=== PATIENT | female | born 1950 | race Caucasian/White ===

== ENCOUNTER → 2016-11-29 | Day surgery (SDC) | payer BC ==
[~2016-11-29] MED LIST: GLYCOPYRROLATE 1 MG/5 ML VIAL. ONE; HYDR12.58 PO; HYDROmorphone 2 MG/ML VIAL IV PRN; IV RINGERS,LACTATED 1000ML 1,000 ML IV SCH; LIDOCAINE 1% 1 ML SYRINGE. ID PRN; LIDOCAINE 2% PF Vial for OR 5 ML VIAL. ONE; MORPHINE SULFATE 2 MG/ML DISP.SYRIN. IV PRN; ONDANSETRON PF 4 MG/2 ML VIAL. IV PRN; PROCHLORPERAZINE 10 MG/2 ML VIAL. IV PRN; PROPOFOL 20 ML IV ONE; ePHEDrine PF IN SALINE 50 MG/5 ML DISP.SYRIN IV ONE; fentaNYL PF VIAL 100 MCG/2 ML VIAL IV PRN
[2016-11-29 08:05] VITALS: BP 154/94
== END | disposition home or self-care (01) ==
LOC: ENDOS 06:34
PROVIDERS: ATTEND Internal Medicine Gastroenterology
DX: K64.0 First degree hemorrhoids (principal); K57.30 Diverticulosis of large intestine without perforation or abscess without bleeding; Z83.3 Family history of diabetes mellitus; Z82.49 Family history of ischemic heart disease and other diseases of the circulatory system
CPT/HCPCS: 45378; J2704; J3490

== ENCOUNTER → 2017-07-13 | Outpatient (CLI) | payer BC | END | disposition home or self-care (01) | LOC: MAMMO 12:29 | DX: Z12.31 Encounter for screening mammogram for malignant neoplasm of breast (principal) | CPT/HCPCS: G0202 ==

== ENCOUNTER → 2018-07-15 | Outpatient (CLI) | payer BC ==
[2016-11-29 08:05] VITALS: BP 154/94
[~2018-07-15] MED LIST changes: -GLYCOPYRROLATE 1 MG/5 ML VIAL. ONE; -HYDROmorphone 2 MG/ML VIAL IV PRN; -IV RINGERS,LACTATED 1000ML 1,000 ML IV SCH; -LIDOCAINE 1% 1 ML SYRINGE. ID PRN; -LIDOCAINE 2% PF Vial for OR 5 ML VIAL. ONE; -MORPHINE SULFATE 2 MG/ML DISP.SYRIN. IV PRN; -ONDANSETRON PF 4 MG/2 ML VIAL. IV PRN; -PROCHLORPERAZINE 10 MG/2 ML VIAL. IV PRN; -PROPOFOL 20 ML IV ONE; -ePHEDrine PF IN SALINE 50 MG/5 ML DISP.SYRIN IV ONE; -fentaNYL PF VIAL 100 MCG/2 ML VIAL IV PRN
--- NOTE | 2018-07-15 12:14 | RAD ---
DATE: 07/15/2018 10:00 AM EXAM: MAMMO LEANN SCREENING BILATERAL HISTORY: routine screening evaluation. COMPARISON: Prior mammographic imaging dating back to 04/25/2012 Bilateral CC and MLO views of the breasts were performed. Bilateral breast tomosynthesis was performed in CC and MLO projections. This study was interpreted with the benefit of Computerized Aided Detection (CAD ). Breast Density: The breast parenchyma shows scattered fibroglandular densities. Breast parenchyma level B. FINDINGS: Benign calcifications are present. No suspicious masses, microcalcifications or architectural distortion is present to suggest malignancy in either breast. The visualized axillae are unremarkable. IMPRESSION: No mammographic evidence of malignancy. BI-RADS CATEGORY: 2 BENIGN FINDING(S) RECOMMENDED FOLLOW-UP: 12M 12 MONTH FOLLOW-UP Annual screening mammography is recommended, unless clinically indicated sooner based on symptoms or change in physical exam. PQRS compliance statement: Patient information was entered into a reminder system with a target due date 07/15/2019 for the next mammogram. Mammography is a sensitive method for finding small breast cancers, but it does not detect them all and is not a substitute for careful clinical examination. A negative mammogram does not negate a clinically suspicious finding and should not result in delay in biopsying a clinically suspicious abnormality. "Our facility is accredited by the [employer] Mammography Program." ZAHRAD
== END | disposition home or self-care (01) ==
LOC: MAMMO 07:59
PROVIDERS: ATTEND Family Medicine
DX: Z12.31 Encounter for screening mammogram for malignant neoplasm of breast (principal)
CPT/HCPCS: 77063; 77067

== ENCOUNTER 2019-03-19 08:10 | Emergency (ER) | payer BC ==
[~2019-03-19] VITALS: Ht 161.3 cm; Wt 75.9 kg
--- NOTE | 2019-03-19 08:28 | PHYS DOC ---
Past Medical History Past Medical History: High Cholesterol, Hypertension Additional Past Medical Histor: Osteoporosis (FERMÍN COLE DO) Past Surgical History: No Surgical History (FERMÍN COLE DO) Additional Information: Nonsmoker Alcohol Use: None Drug Use: None (FERMÍN COLE DO) Adult General Chief Complaint Chief Complaint: WRIST PAIN HPI HPI Patient is a 69 year old female who presents with patient was getting ready for garage sale this morning when there was a rug rolled up and she tripped over and fell landing on her right arm. Patient has a abrasion to her right shoulder and a right wrist deformity with swelling 2+. Patient rates her pain a 9 out of 10 take it is aching. (MARTHA GONZALEZ APRN) Review of Systems Review of Systems Constitutional: Denies fever or chills [] Eyes: Denies change in visual acuity, redness, or eye pain [] Musculoskeletal: Denies back pain. Right wrist joint pain [] Integument:Abrasion to right shoulder. Denies rash or skin lesions [] Neurologic: Denies headache, focal weakness or sensory changes [] All other systems were reviewed and found to be within normal limits, except as documented in this note. (MARTHA GONZALEZ APRN) Current Medications Current Medications Current Medications Medications (Trade) Dose Ordered Sig/Zak Start Time Stop Time Status Last Admin Dose Admin Etomidate (Amidate) 10 mg 1X ONCE 03/19/19 09:30 03/19/19 09:31 DC 03/19/19 09:27 10 MG Fentanyl Citrate (Fentanyl 2ml Vial) 100 mcg 1X ONCE 03/19/19 09:30 03/19/19 09:31 DC 03/19/19 09:27 100 MCG Ibuprofen (Motrin) 800 mg 1X ONCE 03/19/19 08:30 03/19/19 08:31 DC 03/19/19 08:34 800 MG Sodium Chloride 1,000 ml @ 1,000 mls/hr 1X ONCE 03/19/19 09:00 03/19/19 09:59 DC 03/19/19 09:18 1,000 MLS/HR (FERMÍN COLE DO) Allergies Allergies Allergies Coded Allergies Type Severity Reaction Last Updated Verified No Known Drug Allergies 11/29/16 No (FERMÍN COLE DO) Physical Exam Physical Exam Constitutional: Well developed, well nourished, no acute distress, non-toxic appearance. [] HENT: Normocephalic, atraumatic, bilateral external ears normal, oropharynx moist, no oral exudates, nose normal. [] Eyes: PERRLA, EOMI, conjunctiva normal, no discharge. [] Neck: Normal range of motion, no tenderness, supple, no stridor. [] Skin: Abrasion to right shoulder. Warm, dry, no erythema, no rash. [] Back: No tenderness, no CVA tenderness. [] Extremities: dorsal right wrist tenderness with deformity, no cyanosis, no clubbing, right wrist ROM not intact, Right wrist 2+ edema. [] Neurologic: Alert and oriented X 3, normal motor function, normal sensory function, no focal deficits noted. [] Psychologic: Affect normal, judgement normal, mood normal. [] (MARTHA GONZALEZ APRN) Physical Exam Constitutional: Well developed, well nourished, uncomfortable, non-toxic appearance HENT: Normocephalic, atraumatic, oropharynx moist Eyes: Conjunctiva normal, no discharge Neck: Normal range of motion, supple Cardiovascular: Heart rate normal, regular rhythm Lungs & Thorax: Bilateral breath sounds clear to auscultation, no wheezing Skin: Warm, dry, no erythema, ecchymosis and swelling to right wrist Extremities: Right wrist tenderness, ROM limited due to pain, possible deformity noted, swelling noted, right radial pulse +2, CR < 2 sec Neurologic: Alert and oriented X 3, normal motor function, normal sensory function, no focal deficits noted Psychologic: Affect normal, judgement normal (FERMÍN COLE DO) Current Patient Data Vital Signs Vital Signs Date Time Temp Pulse Resp B/P (MAP) Pulse Ox O2 Delivery O2 Flow Rate FiO2 03/19/19 09:27 14 99 Room Air 03/19/19 08:16 97.6 66 162/74 (103) 97.6 (FERMÍN COLE DO) EKG EKG [] (MARTHA GONZALEZ APRN) Radiology/Procedures Radiology/Procedures [] (MARTHA GONZALEZ APRN) Radiology/Procedures PROCEDURE: WRIST 3V RIGHT Three-view right wrist study Clinical indications: Fell this a.m. Pain and deformity. FINDINGS: There is a comminuted impacted fracture of the distal right radial metaphysis and epiphysis with intra-articular extension. There is dorsal displacement of the distal fracture segment and there is severe anterior angulation of the apex of the fracture resulting in dorsal angulation of the radial carpal articulation. In addition, there is a fracture of the ulnar styloid process. The fracture fragment is displaced medially and proximally. There is narrowing of the ulnar carpal space. 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 IMPRESSION: Posttraumatic fractures of the distal right radius and ulna. Electronically signed by: Pako Haney MD (03/19/2019 8:42 AM) [facility] PROCEDURE: FOREARM RIGHT 2 views right wrist 03/19/2019 9:13 AM Indication: Status post fracture reduction Comparison: Right wrist radiographs earlier today Findings: Interval reduction and splinting of previously seen distal radial fracture. Fracture alignment is markedly improved. Ulnar styloid fracture is grossly unchanged. No new osseous abnormality is identified. IMPRESSION: Interval reduction and splinting of distal radial fracture as described. Electronically signed by: Maikel Viera MD (03/19/2019 9:55 AM) [facility] (FERMÍN COLE DO) Impressions: [facility] [address] [place] [address] IMAGING REPORT Signed PATIENT: CANDELARIA DAIGLECOUNT: [id number] : 1950 LOCATION: ER AGE: 69 SEX: F EXAM STATUS: REG ER ORD. PHYSICIAN: MARTHA GONZALEZ APRN REASON: fall this am, pain/deformity rt wrist PROCEDURE: WRIST 3V RIGHT Three-view right wrist study Clinical indications: Fell this a.m. Pain and deformity. FINDINGS: There is a comminuted impacted fracture of the distal right radial metaphysis and epiphysis with intra-articular extension. There is dorsal displacement of the distal fracture segment and there is severe anterior angulation of the apex of the fracture resulting in dorsal angulation of the radial carpal articulation. In addition, there is a fracture of the ulnar styloid process. The fracture fragment is displaced medially and proximally. There is narrowing of the ulnar carpal space. 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 IMPRESSION: Posttraumatic fractures of the distal right radius and ulna. Electronically signed by: Pako Haney MD (03/19/2019 8:42 AM) [facility] DICTATED and SIGNED BY: PAKO HANEY MD DATE: 03/19/19 0842 (MARTHA GONZALEZ APRN) Course & Med Decision Making Course & Med Decision Making Patient is a 69 year old female who presents with patient was getting ready for garage sale this morning when there was a rug rolled up and she tripped over and fell landing on her right arm. Patient has a abrasion to her right shoulder and a right wrist deformity with swelling 2+. Patient rates her pain a 9 out of 10 take it is aching. Tetanus shot less than 5 years ago. Alert and oriented. Skin pink warm and dry. Radial pulses strong and present. Cap refill less than 3 seconds. Skin pink warm and dry. Ambulatory with a steady gait. Patient does not have intact range of motion of her right wrist. Patient does have intact range of motion of the right elbow and her right shoulder. No bruising noted at this time. Patient denies hitting her head, syncope, dizziness, visual changes, nausea, vomiting and a blood thinners, shoulder pain, neck pain, back pain, numbness or tingling. Tenderness to the dorsal wrist more so than the wrist. Patient can wiggle her fingers. No spinal bony tenderness. Ambulatory with a steady gait. PERRLA. I offered the patient hydrocodone ibuprofen or Tylenol for her pain. Patient states that she would take ibuprofen. Xray of right wrist shows There is a comminuted impacted fracture of the distal right radial metaphysis and epiphysis with intra-articular extension. There is dorsal displacement of the distal fracture segment and there is severe anterior angulation of the apex of the fracture resulting in dorsal angulation of the radial carpal articulation. In addition, there is a fracture of the ulnar styloid process. The fracture fragment is displaced medially and proximally. Dr. Cole spoken to the patient and we have discussed moderate sedation with the patient and the procedure itself and medications. Patient's agrees to this. Patient is placed on oxygen and capnography and monitoring analyst. Saline lock in place. Normal saline running. Consents signed. Dr. Cole to reduce right wrist. Splint placed by Dr Cole. See Dr Cole Charting. (MARTHA GONZALEZ APRN) Dragon Disclaimer Dragon Disclaimer This electronic medical record was generated, in whole or in part, using a voice recognition dictation system. (MARTHA GONZALEZ APRN) Departure Departure Impression: Primary Impression: Radial fracture Additional Impression: Ulnar fracture Disposition: 01 HOME, SELF-CARE Condition: STABLE Referrals: JERI GARCIA MD (PCP) EMILY RAMAN II, MD Patient Instructions: Radial Fracture, Sedation, Moderate, Adult, Ulnar Fracture Additional Instructions: Call Dr. Raman office to make a follow-up appointment within the next 3 or 4 days. Ibuprofen ice and elevation for pain. I will also give a prescription for hydrocodone if needed. Scripts Hydrocodone Bit/Acetaminophen (HYDROCODONE-APAP 5-325 ) 1 Tab Tablet 1 TAB PO PRN Q6HRS PRN for PAIN, #10 TAB 0 Refills Prov: MARTHA GONZALEZ APRN 03/19/19 MODERATE SEDATION ASSESSMENT* RISKS/ALTERNATIVES Risks/Alternatives Risks and alternatives of this type of sedation and procedure discussed with: RISK/ALTERNATIVES: Patient (FERMÍN COLE DO) Risks/Alternatives Risks and alternatives of this type of sedation and procedure discussed with: (MARTHA GONZALEZ APRN) H & P ON CHART H & P H & P on chart and reviewed for co-morbid conditions and appropriate labs. H&P ON CHART: Yes (FERMÍN COLE DO) H & P H & P on chart and reviewed for co-morbid conditions and appropriate labs. (MARTHA GONZALEZ APRN) STATUS PREG STATUS ASSESSED: N/A (FERMÍN COLE DO) MEDS/ALLERGIES REVIEWED Meds/Allergies Reviewed Medications and Allergies including time and route of recently administered narcotics and sedatives. MEDS/ALLERGIES REVIEWED: Yes (FERMÍN COLE DO) Meds/Allergies Reviewed Medications and Allergies including time and route of recently administered narcotics and sedatives. (MARTHA GONZALEZ APRN) ASA RATING ASA RATING: II (FERMÍN COLE DO) AIRWAY ASSESSMENT Airway Assessment Airway patency, oral function limitations, presence of caps, crowns, dentures, partials, and ability to extend neck assessed. AIRWAY ASSESSMENT: Yes (FERMÍN COLE DO) Airway Assessment Airway patency, oral function limitations, presence of caps, crowns, dentures, partials, and ability to extend neck assessed. (MARTHA GONZALEZ APRN) MALLAMPATI SCORE MALLAMPATI SCORE: II (FERMÍN COLE DO) PRE-SEDATION ASSESSMENT PRE-SEDATION ASSESSMENT: Yes (FERMÍN COLE DO) Splinting Splinting : Location: Right wrist Hand-Made Type: orthoglass Splint: sugar-tong Pre-Proc Neuro Vasc Exam: normal Post-Proc Neuro Vasc Exam: normal, unchanged from pre-exam (FERMÍN COLE DO) Additional Procedures Progress Fracture reduction under Moderate Sedation: Written consent obtained. Monitoring applied including telemetry, pulse oximetry, blood pressure, and end tidal CO2. Supplemental oxygen provided via nasal cannula at 2 L. IV fluid hydration initiated with normal saline. Time-out completed. Sedation provided with 100 �g of fentanyl and 10 mg of etomidate with appropriate sedation. Manipulation performed to right wrist with interval lengthening and realignment of limb. An Ortho-Glass sugar tong splint was applied after stockinette and adequate padding provided. Patient did have brief episode of decreased HR down to 38bpm and decreased O2 saturation down to 86% which was improved after brief (15 sec of bag valve mask breaths). Patient with immediate improvement back to 50bpm HR and 100% on 2L NC supplemental O2 via NC. A repeat XR obtained with interval improvement of fracture. (FERMÍN COLE DO) Attending Signature Attending Signature I have personally interviewed and examined the patient. All charts, labs, and imaging studies were reviewed. I agree with the PA/PROJECTOR BOOTH OPERATOR's findings, exam, and plan. (FERMÍN COLE DO) Attending Signature I have participated in the care of this patient and I have reviewed and agree with all pertinent clinical information above including history, exam, and perla mmendations. (MARTHA GONZALEZ APRN) Problem Qualifiers Primary Impression: Radial fracture Encounter type: initial encounter Radius location: shaft Fracture type: closed Fracture morphology: comminuted Fracture alignment: displaced Laterality: right Qualified Codes: S52.351A - Displaced comminuted fracture of shaft of radius, right arm, initial encounter for closed fracture Additional Impression: Ulnar fracture Encounter type: initial encounter Ulna location: styloid process Fracture type: closed Fracture alignment: displaced Laterality: right Qualified Codes: S52.611A - Displaced fracture of right ulna styloid process, initial encounter for closed fracture MARTHA GONZALEZ APRN Mar 19, 2019 08:28 FERMÍN COLE DO Mar 19, 2019 09:17
[2019-03-19] MEDS ORDERED: IBUPROFEN 400 MG TABLET. PO ONE (08:30)
--- NOTE | 2019-03-19 08:45 | RAD ---
Three-view right wrist study Clinical indications: Fell this a.m. Pain and deformity. FINDINGS: There is a comminuted impacted fracture of the distal right radial metaphysis and epiphysis with intra-articular extension. There is dorsal displacement of the distal fracture segment and there is severe anterior angulation of the apex of the fracture resulting in dorsal angulation of the radial carpal articulation. In addition, there is a fracture of the ulnar styloid process. The fracture fragment is displaced medially and proximally. There is narrowing of the ulnar carpal space. 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 IMPRESSION: Posttraumatic fractures of the distal right radius and ulna. Electronically signed by: Alexey Haney MD (03/19/2019 8:42 AM) [facility]
[2019-03-19] MEDS ORDERED: IV NORMAL SALINE 1000ML BAG 1,000 ML IV ONE (09:00)
[2019-03-19] MEDS ORDERED: HYDR-2761 PO (09:00)
[2019-03-19 09:11] VITALS: BP 154/71
[2019-03-19] MEDS ORDERED: ETOMIDATE 20 MG/10 ML VIAL. IV ONE (09:30)
[2019-03-19] MEDS ORDERED: fentaNYL PF VIAL 100 MCG/2 ML VIAL IV ONE (09:30)
--- NOTE | 2019-03-19 09:58 | RAD ---
2 views right wrist 03/19/2019 9:13 AM Indication: Status post fracture reduction Comparison: Right wrist radiographs earlier today Findings: Interval reduction and splinting of previously seen distal radial fracture. Fracture alignment is markedly improved. Ulnar styloid fracture is grossly unchanged. No new osseous abnormality is identified. IMPRESSION: Interval reduction and splinting of distal radial fracture as described. Electronically signed by: Maikel Viera MD (03/19/2019 9:55 AM) [facility]
[2019-03-19 10:05] VITALS: BP 124/60
[2019-03-24] MEDS ORDERED: OMEP20TA63 PO (16:25)
[2019-03-24] MEDS ORDERED: CALC-157 PO (16:27)
[2019-03-24] MEDS ORDERED: TRIA1TAB3 PO (16:27)
[2019-03-24] MEDS ORDERED: ALEN70TA6 PO (16:28)
[2019-03-24] MEDS ORDERED: ATOR20TA58 PO (16:29)
[2019-03-24] MEDS ORDERED: IBUP200T44 PO (16:31)
== END 2019-03-19 10:28 | disposition home or self-care (01) ==
LOC: ER 08:10
DX: S52.351A Displaced comminuted fracture of shaft of radius, right arm, initial encounter for closed fracture (principal); S52.611A Displaced fracture of right ulna styloid process, initial encounter for closed fracture; I10 Essential (primary) hypertension; E78.00 Pure hypercholesterolemia, unspecified; W01.0XXA Fall on same level from slipping, tripping and stumbling without subsequent striking against object, initial encounter; Y93.89 Activity, other specified; Y92.89 Other specified places as the place of occurrence of the external cause; Y99.8 Other external cause status
CPT/HCPCS: 25605; 73090; 73110; 99285; J3010; J7030

== ENCOUNTER 2019-03-25 11:33 | Day surgery (SDC) | payer BC ==
[~2019-03-25] VITALS: Ht 161.3 cm; Wt 75.7 kg
[~2019-03-25 11:33] MED LIST changes: +ALEN70TA6 PO; +ATOR20TA58 PO; +CALC-157 PO; +HYDR-2761 PO; +HYDROmorphone 2 MG/ML VIAL IV PRN; +IBUP200T44 PO; +OMEP20TA63 PO; +ONDANSETRON PF 4 MG/2 ML VIAL. IV PRN; +PROCHLORPERAZINE 10 MG/2 ML VIAL. IV PRN; +TRIA1TAB3 PO; +fentaNYL PF VIAL 100 MCG/2 ML VIAL IV PRN
[2019-03-25] MEDS ORDERED: PROPOFOL 20 ML IV ONE (11:45)
[2019-03-25] MEDS ORDERED: LIDOCAINE 2% PF 5 ML VIAL. ONE (11:45)
[2019-03-25] MEDS ORDERED: fentaNYL PF VIAL 100 MCG/2 ML VIAL ONE (11:45)
[2019-03-25] MEDS: IV RINGERS,LACTATED 1000ML 1,000 ML IV SCH ×2 (11:57→14:02)
[2019-03-25] MEDS ORDERED: BUPIVACAINE MPF 0.5% 30 ML VIAL. ONE (12:27)
[2019-03-25] MEDS ORDERED: ROPIVacaine 0.5% PF 20 ML VIAL. ONE (12:27)
--- NOTE | 2019-03-25 13:02 | DISCH ---
DISCHARGE INSTRUCTIONS Condition on Discharge Condition on Discharge: Stable Activity After Discharge Activity Instructions for Disc: Other, see below (fine motor use permitted with right hand no lifting heart pushing or pulling) Weight Bearing Status after Di: Other, see below (fine motor use only nonweightbearing right hand) Diet after Discharge Diet after Discharge: Regular Wound Incision Care Wound/Incision Care: Ice to area for comfort, Do not change dressing Contacting the after DC Call your doctor for: Concerns you may have Follow-Up Follow up with: Dr. Farr 10-14 days CLARKE FARR MD Mar 25, 2019 13:02
[2019-03-25] MEDS ORDERED: ePHEDrine PF IN SALINE 50 MG/10 ML SYRINGE. IV ONE (13:19)
[2019-03-25] MEDS ORDERED: DEXAMETHASONE SOD PHOS 4 MG/ML VIAL ONE (13:19)
[2019-03-25] MEDS ORDERED: ONDANSETRON PF 4 MG/2 ML VIAL. ONE (13:19)
[2019-03-25] MEDS ORDERED: SEVOFLURANE 61 TO 120 MINUTES. IH ONE (13:49)
--- NOTE | 2019-03-25 14:00 | PDOC4 ---
Operative Note Operative Note Surgery: 03/25/2019 Preoperative diagnosis: Displaced intra-articular right distal radius fracture. Postoperative diagnosis: Same Operative procedure: Operative reduction internal fixation right 2 part intra- articular distal radius fracture Surgeon: Chika Assist: Judson Anesthesia: Gen. Estimated blood loss: 10 mL Tourniquet time approximately 35 minutes Complications: None Operative indications: Please see my clinic note for detailed operative indications and note that the patient is otherwise healthy sustained a displaced distal radius fracture intra-articular in a fall. She had significant angulation rather than the normal volar tilt was dorsally angulated almost 90� off of the typical alignment with intra-articular displacement. I had gone over with her the strong recommendation of operative treatment with locking plate and screw fixation. We talked about the possibility of infection nerve or blood vessel damage nonhealing and some stiffness and weakness even in the best of circumstances. Also the rationale of getting alignment is anatomic as possible especially at the joint surface to minimize ongoing degenerative changes. All her questions were answered she wishes to proceed with surgical evaluation and treatment. Operative text: Patient was identified procedure verified patient placed in the supine position on the operating table. After adequate amounts of general anesthesia were administered the right upper extremity was prepped and draped in standard sterile fashion with a upper arm tourniquet. After timeout was performed patient procedure identified and verified the right arm was exsanguinated by Esmarch bandage tourniquet inflated to 250 mmHg and a standard Mainor volar approach was carried out to the distal radius. A standard Scarlett DVR locking plate was placed after near anatomic reduction obtained under fluoroscopic guidance and a screw was placed in the sliding hole for optimal positioning. Distal locking screws were individually placed under fluoroscopic guidance to ensure good alignment length and no penetration into the joint. Proximal locking screws were then placed along with nonlocking shaft screws for additional fixation. Near anatomic alignment noted in all fluoroscopic views along with excellent hardware placement. Thorough irrigation carried out normal saline solution closure accomplished with buried Vicryl suture subcuticular Monocryl Steri-Strips and Mastisol a well-padded volar Ortho-Glass splint. Fingers were noted be warm pink find deflation of tourniquet after total tourniquet time approximately 35 minutes patient was returned recovery room in stable condition having tolerated procedure well CLARKE MARTÍNEZ MD Mar 25, 2019 14:00
[2019-03-25] MEDS: MORPHINE SULFATE 2 MG/ML VIAL. IV PRN ×2 (14:03→14:17)
[2019-03-25] MEDS: fentaNYL PF VIAL 100 MCG/2 ML VIAL IV PRN ×2 (14:04→14:16)
[2019-03-25] MEDS ORDERED: HYDROcodone/APAP 5/325MG 1 TAB TABLET PO ONE (14:30)
[2019-03-25 14:38] VITALS: BP 143/66
== END 2019-03-25 15:30 | disposition home or self-care (01) ==
LOC: SURG 11:33
PROVIDERS: ATTEND Orthopaedic Surgery
DX: S52.571A Other intraarticular fracture of lower end of right radius, initial encounter for closed fracture (principal); E66.9 Obesity, unspecified; M81.0 Age-related osteoporosis without current pathological fracture; I10 Essential (primary) hypertension; E78.00 Pure hypercholesterolemia, unspecified; X58.XXXA Exposure to other specified factors, initial encounter; Y93.89 Activity, other specified; Y92.89 Other specified places as the place of occurrence of the external cause; Y99.8 Other external cause status; Z98.890 Other specified postprocedural states
CPT/HCPCS: 25608; 76000; A7015; C1713; J0171; J1100; J2001; J2270; J2405; J2704; J3010; J3490; J2795

== ENCOUNTER → 2019-07-02 | Outpatient (CLI) | payer BC ==
[~2019-07-02] MED LIST changes: -HYDROmorphone 2 MG/ML VIAL IV PRN; -ONDANSETRON PF 4 MG/2 ML VIAL. IV PRN; -PROCHLORPERAZINE 10 MG/2 ML VIAL. IV PRN; -fentaNYL PF VIAL 100 MCG/2 ML VIAL IV PRN
--- NOTE | 2019-07-02 10:40 | RAD ---
DATE: July 02, 2019 EXAM: MAMMO LEANN SCREENING BILATERAL HISTORY: Screening study. COMPARISON: 2016 and 2018 This study was interpreted with the benefit of Computerized Aided Detection (CAD). 2-D digital mammographic views of both breasts were performed in the CC and MLO projections. 3-D digital tomosynthesis images of both breasts were performed in the CC and MLO projections and reviewed on a computer workstation. FINDINGS: Breast Density: SCATTERED The breast parenchyma shows scattered fibroglandular densities. Breast parenchyma level B.. There are no dominant suspicious masses, suspicious microcalcifications or evidence of architectural distortion. IMPRESSION: No mammographic indicators for malignancy. BI-RADS CATEGORY: 1 NEGATIVE RECOMMENDED FOLLOW-UP: 12M 12 MONTH FOLLOW-UP PQRS compliance statement: Patient information was entered into a reminder system with a target due date July 03, 2020 for the next mammogram. Mammography is a sensitive method for finding small breast cancers, but it does not detect them all and is not a substitute for careful clinical examination. A negative mammogram does not negate a clinically suspicious finding and should not result in delay in biopsying a clinically suspicious abnormality. "Our facility is accredited by the [employer] Mammography Program." The patient's breast density may affect the ability of mammography to detect breast cancer. There are 4 categories of breast density, A, B, C and D. Breast density A means that most of the breast tissue is replaced with adipose tissue and therefore is not dense. Breast density B means that the breast tissue is mildly dense and scattered. Breast density C means that the breast tissue is heterogeneously dense. Breast density D means that the breast tissue is very dense. Breast densities especially C and D may decrease the sensitivity of mammography to detect breast cancer. Therefore, the patient may benefit from 3-D breast mammography (3D breast tomography) as a part of their screening mammogram. Insurance may or may not pay for this additional imaging. The patient's breast density based on today's mammogram is category B.
== END | disposition home or self-care (01) ==
LOC: MAMMO 13:05
PROVIDERS: ATTEND Family Medicine
DX: Z12.31 Encounter for screening mammogram for malignant neoplasm of breast (principal); I10 Essential (primary) hypertension; E78.00 Pure hypercholesterolemia, unspecified; K21.9 Gastro-esophageal reflux disease without esophagitis
CPT/HCPCS: 77063; 77067

== ENCOUNTER → 2020-07-12 | Outpatient (CLI) | payer BC ==
[~2020-07-12] MED LIST changes: -ALEN70TA6 PO; +ALEN70TA60 PO
--- NOTE | 2020-07-14 10:12 | RAD ---
DATE: 07/12/2020 2:50 PM EXAM: MAMMO LEANN SCREENING BILATERAL HISTORY: Screening COMPARISON: 07/02/2019 Bilateral CC and MLO views of the breasts were performed. Bilateral breast tomosynthesis was performed in CC and MLO projections. This study was interpreted with the benefit of Computerized Aided Detection (CAD). FINDINGS: Breast Density: FATTY The Breast Parenchyma is primarily fatty replaced. Breast parenchyma level density A. No suspicious masses, microcalcifications or architectural distortion is present to suggest malignancy in either breast. The visualized axillae are unremarkable. IMPRESSION: No mammographic evidence of malignancy. BI-RADS CATEGORY: 1 NEGATIVE RECOMMENDED FOLLOW-UP: 12M 12 MONTH FOLLOW-UP Annual screening mammography is recommended, unless clinically indicated sooner based on symptoms or change in physical exam. PQRS compliance statement: Patient information was entered into a reminder system with a target due date for the next mammogram. Mammography is a sensitive method for finding small breast cancers, but it does not detect them all and is not a substitute for careful clinical examination. A negative mammogram does not negate a clinically suspicious finding and should not result in delay in biopsying a clinically suspicious abnormality. "Our facility is accredited by the [employer] Mammography Program."
== END ==
LOC: MAMMO 14:48
PROVIDERS: ATTEND Family Medicine
DX: Z12.31 Encounter for screening mammogram for malignant neoplasm of breast (principal)
CPT/HCPCS: 77063; 77067

== ENCOUNTER → 2021-10-05 | Outpatient (CLI) | payer BC ==
[~2021-10-05] MED LIST changes: -ALEN70TA60 PO; +ALEN70TA71 PO
--- NOTE | 2021-10-05 12:48 | RAD ---
Bilateral digital screening 2-D and 3-D (digital breast tomosynthesis) mammogram: Reason for examination: Routine screening. Comparison: Mammograms from 07/12/2020, 07/02/2019, and 07/15/2018. Interpretation was made with the benefit of CAD. FINDINGS: Breast density: Category B. There are scattered areas of fibroglandular density. No suspicious breast mass, malignant appearing calcifications, or architectural distortion is seen. IMPRESSION: No evidence of malignancy. Assessment: BI-RADS 1. Negative. Recommendation: Routine screening mammograms. The patient will receive a letter with the results in the mail. Patient information will be entered i nto the mammography reminder system with a target recall date for the next mammogram. A reminder karthik er will be generated. Electronically signed by: Noemi Decker MD (10/05/2021 12:45 PM) [id number]
== END ==
LOC: MAMMO 07:49
PROVIDERS: ATTEND Family Medicine
DX: Z12.31 Encounter for screening mammogram for malignant neoplasm of breast (principal)
CPT/HCPCS: 77063; 77067